=== PATIENT | female | born 1935 | race African-American/Black ===

== ENCOUNTER 2018-01-23 08:31 | Emergency (ER) | payer MEDICARE ==
[~2018-01-23] VITALS: Ht 154.9 cm; Wt 54.4 kg
--- NOTE | 2018-01-23 09:13 | PHYS DOC ---
Past Medical History Past Medical History: Diabetes-Type II Past Surgical History: Cholecystectomy, Tubal ligation Additional Past Surgical Histo: foot Alcohol Use: None Drug Use: None Adult General Chief Complaint Chief Complaint: Dark stool HPI HPI This is an 82-year-old female presents to the ED after having 4 bowel movements with slightly loose, dark stools yesterday. Patient states she has never had similar symptoms in the past. She also states that 4 days ago she developed diffuse abdominal pain after drinking water while at work, this pain resolved the next day and the patient has been taking Pepto-Bismol since. Pt denies nausea, vomiting, dizziness, constipation, chest pain, SOB, fevers, chills. Her last colonoscopy was ~4 years ago and normal. Review of Systems Review of Systems Constitutional: Denies fever or chills [] Respiratory: Denies cough or shortness of breath [] Cardiovascular: Denies chest pain or palpitations GI: Reports abdominal pain (now resolved), dark stool, diarrhea; Denies nausea, vomiting, grossly bloody stools or constipation [] : Denies dysuria or hematuria [] Musculoskeletal: Denies back pain or joint pain [] Integument: Denies rash or skin lesions [] Neurologic: Denies headache, dizziness, focal weakness or sensory changes [] Complete systems were reviewed and found to be within normal limits, except as documented in this note. Current Medications Current Medications Current Medications Medications (Trade) Dose Ordered Sig/Charlie Start Time Stop Time Status Last Admin Dose Admin Sodium Chloride 1,000 ml @ 1,000 mls/hr 1X ONCE 01/23/18 09:15 01/23/18 10:14 DC 01/23/18 09:26 1,000 MLS/HR Allergies Allergies Allergies Coded Allergies Type Severity Reaction Last Updated Verified Penicillins Allergy Unknown 01/23/18 Yes codeine Allergy Unknown 01/23/18 Yes Physical Exam Physical Exam Constitutional: Well developed, well nourished, no acute distress, non-toxic appearance. [] HENT: Normocephalic, atraumatic Eyes: Conjunctiva normal, no discharge. [] Neck: Normal range of motion, no tenderness, supple, no stridor. [] Cardiovascular: Heart rate regular rhythm, no murmur [] Lungs & Thorax: Bilateral breath sounds clear to auscultation [] Abdomen: Bowel sounds normal, soft, no tenderness, no masses, no pulsatile masses. [] Rectal exam: no hemorrhoids, FOBT guiac negative Skin: Warm, dry, no erythema, no rash. [] Back: No tenderness, no CVA tenderness. [] Extremities: No tenderness, no cyanosis, no clubbing, ROM intact, no edema. [] Neurologic: Alert and oriented X 3, normal motor function, normal sensory function, no focal deficits noted. [] Psychologic: Affect normal, judgement normal, mood normal. [] Current Patient Data Vital Signs Vital Signs Date Time Temp Pulse Resp B/P (MAP) Pulse Ox O2 Delivery O2 Flow Rate FiO2 01/23/18 09:10 70 16 153/77 (102) 99 Room Air 01/23/18 08:45 97.9 97.9 Lab Values Laboratory Tests Test 01/23/18 09:20 01/23/18 09:28 White Blood Count 4.4 x10^3/uL (4.0-11.0) Red Blood Count 4.50 x10^6/uL (3.50-5.40) Hemoglobin 13.4 g/dL (12.0-15.5) Hematocrit 39.8 % (36.0-47.0) Mean Corpuscular Volume 89 fL (79-100) Mean Corpuscular Hemoglobin 30 pg (25-35) Mean Corpuscular Hemoglobin Concent 34 g/dL (31-37) Red Cell Distribution Width 14.4 % (11.5-14.5) Platelet Count 219 x10^3/uL (140-400) Neutrophils (%) (Auto) 44 % (31-73) Lymphocytes (%) (Auto) 27 % (24-48) Monocytes (%) (Auto) 23 % (0-9) H Eosinophils (%) (Auto) 6 % (0-3) H Basophils (%) (Auto) 0 % (0-3) Neutrophils # (Auto) 1.9 x10^3uL (1.8-7.7) Lymphocytes # (Auto) 1.2 x10^3/uL (1.0-4.8) Monocytes # (Auto) 1.0 x10^3/uL (0.0-1.1) Eosinophils # (Auto) 0.3 x10^3/uL (0.0-0.7) Basophils # (Auto) 0.0 x10^3/uL (0.0-0.2) Platelet Estimate Pending Prothrombin Time 13.0 SEC (11.7-14.0) Prothrombin Time INR 1.0 (0.8-1.1) PTT 45 SEC (24-38) H Sodium Level 140 mmol/L (136-145) Potassium Level 3.3 mmol/L (3.5-5.1) L Chloride Level 102 mmol/L (98-107) Carbon Dioxide Level 28 mmol/L (21-32) Anion Gap 10 (6-14) Blood Urea Nitrogen 11 mg/dL (7-20) Creatinine 1.0 mg/dL (0.6-1.0) Estimated GFR (Cockcroft-Gault) 63.9 BUN/Creatinine Ratio 11 (6-20) Glucose Level 101 mg/dL (70-99) H Calcium Level 9.3 mg/dL (8.5-10.1) Magnesium Level 1.8 mg/dL (1.8-2.4) Total Bilirubin 0.3 mg/dL (0.2-1.0) Aspartate Amino Transferase (AST) 25 U/L (15-37) Alanine Aminotransferase (ALT) 21 U/L (14-59) Alkaline Phosphatase 92 U/L (46-116) Total Protein 8.8 g/dL (6.4-8.2) H Albumin 3.5 g/dL (3.4-5.0) Albumin/Globulin Ratio 0.7 (1.0-1.7) L Stool Occult Blood Positive (NEG) Laboratory Tests 01/23/18 09:20 Laboratory Tests 01/23/18 09:20 EKG EKG [] Radiology/Procedures Radiology/Procedures [] Course & Med Decision Making Course & Med Decision Making Pertinent Labs and Imaging studies reviewed. (See chart for details) [] Dragon Disclaimer Dragon Disclaimer This electronic medical record was generated, in whole or in part, using a voice recognition dictation system. Departure Departure Impression: Primary Impression: Diarrhea Disposition: 01 HOME, SELF-CARE Condition: STABLE Referrals: MANNY DEJESUS (PCP) SAIMA BOB MD Patient Instructions: Diarrhea, [id number], Diet for Diarrhea, Adult Additional Instructions: Increase in these foods to help with your diarrhea: BRAT (bananas, rice, applesauce, toast). These foods with naturally help form your stool together. Scripts Famotidine (PEPCID) 20 Mg Tablet 20 MG PO BID, #14 TAB Prov: ILIANA POOLE DO 01/23/18 Problem Qualifiers Primary Impression: Diarrhea Diarrhea type: unspecified type Qualified Codes: R19.7 - Diarrhea, unspecified ILIANA POOLE DO Jan 23, 2018 09:13
[2018-01-23] MEDS: IV NORMAL SALINE 1000ML BAG 1,000 ML IV ONE (09:26)
[2018-01-23 09:33] LABS: BASO % 0 % (0-3); EOS # 0.3 x10^3/uL (0.0-0.7); EOS % 6 % (0-3); HEMATOCRIT 39.8 % (36.0-47.0); HEMOGLOBIN 13.4 g/dL (12.0-15.5); LYMPH # 1.2 x10^3/uL (1.0-4.8); LYMPH % 27 % (24-48); MEAN CORPUSCULAR HEMOGLOBIN 30 pg (25-35); MEAN CORPUSCULAR HGB CONC 34 g/dL (31-37); MEAN CORPUSCULAR VOLUME 89 fL (79-100); MONO % 23 % (0-9); NEUT # 1.9 x10^3uL (1.8-7.7); NEUT % 44 % (31-73); PLATELET COUNT 219 x10^3/uL (140-400); RED CELL DISTRIBUTION WIDTH 14.4 % (11.5-14.5); WHITE BLOOD COUNT 4.4 x10^3/uL (4.0-11.0)
[2018-01-23 09:41] LABS: FECAL OB PT POSITIVE (NEG)
[2018-01-23 09:42] LABS: CALCIUM 9.3 mg/dL (8.5-10.1); GFR 63.9; POTASSIUM 3.3 mmol/L (3.5-5.1)
[2018-01-23 09:48] LABS: ALBUMIN 3.5 g/dL (3.4-5.0); ALBUMIN/GLOBULIN RATIO 0.7 (1.0-1.7); MAGNESIUM 1.8 mg/dL (1.8-2.4); TOTAL BILIRUBIN 0.3 mg/dL (0.2-1.0); TOTAL PROTEIN 8.8 g/dL (6.4-8.2)
[2018-01-23 10:07] VITALS: BP 159/94
[2018-01-23] MEDS ORDERED: FAMO-63 PO (10:14)
[2018-01-23 12:35] LABS: % ATYL 1 % (0-0); % BANDS 3 % (0-9); % EOS 3 % (0-5); % LYMPHS 28 % (24-48); % MONOS 17 % (0-10); % SEGS 48 % (35-66); PLT ESTIMATE ADEQUATE (ADEQUATE)
== END 2018-01-23 10:37 | disposition home or self-care (01) ==
LOC: ER 08:31
DX: R19.7 Diarrhea, unspecified (principal); R10.84 Generalized abdominal pain; K92.1 Melena; E11.9 Type 2 diabetes mellitus without complications; Z98.51 Tubal ligation status; Z90.49 Acquired absence of other specified parts of digestive tract; Z88.0 Allergy status to penicillin; Z88.5 Allergy status to narcotic agent
CPT/HCPCS: 36415; 80053; 82274; 83735; 85007; 85025; 85610; 85730; 96360; 99283; J7030